=== PATIENT | male | born 1965 ===

== ENCOUNTER 2017-08-09 09:30 | Day surgery (SDC) | payer MEDICARE ==
[2017-07-18 09:43] VITALS: BMI 31.9
[2017-08-09] MEDS ORDERED: Midazolam 2 MG/2 ML VIAL ONE (12:00)
[2017-08-09] MEDS ORDERED: Propofol 10 mg/ml Inj (20 ML) ONE (12:00)
[2017-08-09] MEDS ORDERED: Rocuronium 10 mg/ml (5 ml) ONE (12:01)
[2017-08-09] MEDS ORDERED: Sevoflurane - Inhalation Anesthetic Liq (250 ml) ONE (12:05)
[2017-08-09] MEDS ORDERED: Bupivacaine 0.5% Inj(30mL) ONE (12:05)
[2017-08-09] MEDS ORDERED: Ciprofloxacin 400mg/200ml D5W 400 MG/200 ML BAG IVPB ONE (12:32)
[2017-08-09] MEDS ORDERED: ePHEDrine 50 mg/ml Inj ONE (12:59)
[2017-08-09] MEDS ORDERED: Neostigmine Methylsulfate 3mg/3ml Syringe IV ONE (13:51)
[2017-08-09] MEDS ORDERED: Glycopyrrolate 0.2 mg/ml (2ml vial) ONE (13:52)
[2017-08-09] MEDS ORDERED: HYDROmorphone 0.5 mg/0.5 ml ISec IVP PRN (14:03)
--- NOTE | 2017-08-09 14:06 | PCM.SURG1 ---
Surgeon's Initial Post Op Note - Surgeon's Notes Surgeon: Dr. Mcmillan Laundry Machine Tender: Dr. Hurst, PGY-2, Dr. Low, PGY-3, Reagan OMS3 Type of Anesthesia: General Endo, Local Anesthesia Administered By: Dr. Hurst Pre-Operative Diagnosis: Left inguinal hernia Operative Findings: Cord lipoma, inguinal hernia. Post-Operative Diagnosis: Left inguinal hernia. Operation Performed: Open left inguinal hernia repair with mesh Specimen/Specimens Removed: Left cord lipoma Estimated Blood Loss: EBL {In ML}: 10 Blood Products Given: N/A Drains Used: No Drains Post-Op Condition: Good Date of Surgery/Procedure: 08/09/17 Time of Surgery/Procedure: 14:07
[2017-08-09] MEDS ORDERED: Oxycodone/Acetaminophen 5/325 mg Tab PO PRN (14:08)
[2017-08-09] MEDS ORDERED: Lactated Ringer's 1,000 ML IV SCH (14:15)
[2017-08-09] MEDS ORDERED: Oxycodone/Acetaminophen 5/325 mg Tab ONE (14:58)
[2017-08-09 15:30] VITALS: RESP 18; TEMP 98.3
[2017-08-09 15:52] VITALS: BP 113/82; PULSE 86; O2SAT 96
--- NOTE | 2017-08-10 12:01 | OP ---
PROCEDURE DATE: 08/09/2017 PREOPERATIVE DIAGNOSIS: Symptomatic left inguinal hernia. POSTOPERATIVE DIAGNOSIS: Symptomatic left inguinal hernia. PROCEDURE PERFORMED: Repair of the left inguinal hernia with mesh. SURGEON: Paul Mcmillan MD. COIN WRAPPING MACHINE OPERATOR: Dr. Mooney and Dr. Hurst. ANESTHESIOLOGIST: Dr. Hurst. ANESTHESIA: General endotracheal anesthesia. ESTIMATED BLOOD LOSS: Minimal. SPECIMEN: Cord lipoma . INDICATIONS: The patient is a 52-year-old male with history of pain in the left groin and associated tenderness and discomfort and extending towards the right thigh. The patient was seen in the office, evaluated and was noted to have symptomatic left inguinal hernia and was scheduled for the repair. DESCRIPTION OF PROCEDURE: The patient was brought to the Operating Room, placed in the operating table in supine position. The patient was connected to the EKG, blood pressure, and pulse oximetry monitors. The patient then underwent general endotracheal anesthesia and was prepped and draped in usual sterile fashion. First, standard time-out procedure took place, and everybody in the room agreed as to the patient's identity, diagnosis, and the procedure to be performed. The risk of protocol was performed. The plan for the surgery as well as postoperative followup was discussed with the surgical team. First using lidocaine with Marcaine, the area of the skin overlying the left inguinal canal was carefully infiltrated and #15 blade was used in order to make an incision. The incision was carried through the subcutaneous fascia down to the external oblique aponeurosis, which was exposed and incised along its fibers. The aponeurosis was elevated with two mosquito clamps and incised all the way down to the external oblique of the inguinal canal. Some lateral aspect of that was also opened up in order to expose the underlying cord structures. Now careful dissection was done in order to get down through the inguinal ligament, along which the dissection was carried towards the pubic tubercle. The spermatic cord with its structures was then carefully elevated and suspended on the Joann drain. Once this was done, the further dissection of the surrounding tissues was done in order to expose fully the internal inguinal canal ring. Once this was completed, I then proceeded with mobilizing preperitoneal space and once mobilized, I placed a UltraPro mesh plug into the preperitoneal space and sutured the external portion of the patch through the edges of the transversalis fascia and inguinal ligament. Once this was completed, I then proceeded with placing the spermatic cord back in its original position. The ilioinguinal nerve was not identified and was not seen in the field of operation. Once the wound was copiously irrigated, the irrigant fluid was suctioned out. It then carefully proceeded with closure of the Elizabeth's fascia using 3-0 Vicryl, deep dermal layer with 3-0 Vicryl and the external portion of the mesh was placed flatly on top of the inguinal floor. The keyhole was cut out for the accommodation of the spermatic cord which was placed back in its original position. Once the mesh was secured to the transversalis fascia and inguinal ligament, I then proceeded with careful evaluation of the cord itself. It was skeletonized and was noted to have two lipomas, of which one was fairly large and most likely, represented herniation and discomfort. This was carefully dissected out down to the base and ligated with 0-Vicryl. Now the spermatic cord was placed back in its original position. The area was infiltrated with lidocaine mixed with Toradol. The Elizabeth fascia was closed using 3-0 Vicryl. The deep dermal layer was closed using 3-0 Vicryl and the skin was closed using 4-0 Monocryl. The patient tolerated the procedure well and there were no complications. The patient was awakened and transferred to the recovery room for further observation. Paul Mcmillan MD
== END 2017-08-09 16:30 | disposition home or self-care (01) ==
LOC: SDS 09:30 → MERGE 09:45 → SDS 16:30
PROVIDERS: ATTEND General Practice
DX: K40.90 Unilateral inguinal hernia, without obstruction or gangrene, not specified as recurrent (principal); D17.6 Benign lipomatous neoplasm of spermatic cord
CPT/HCPCS: 49505; 88302; C1781; J0744; J1170; J1885 ×3; J2250; J2405; J2704; J2710; J2765; J3010; J7120 ×2